=== PATIENT | female | born 2000 | race Two or more races ===

== ENCOUNTER 2020-05-25 16:17 | Emergency (ER) | payer MEDICAID ==
[~2020-05-25] VITALS: Ht 172.7 cm; Wt 56.0 kg
[2020-05-25 16:23] VITALS: BP 128/80
[2020-05-25] MEDS ORDERED: AZITHROMYCIN 500 MG TABLET PO ONE (19:00)
[2020-05-25] MEDS ORDERED: CEFTRIAXONE SODIUM 250 MG/VIAL IM ONE (19:00)
[2020-05-25 19:02] LABS: CLARITY URINE CLEAR (CLEAR); COLOR URINE YELLOW (YELLOW); KETONES URINE NEGATIVE (NEGATIVE); LEUKOCYTE ESTERASE URINE TRACE (NEGATIVE); NITRITE URINE NEGATIVE (NEGATIVE); OCCULT BLOOD URINE NEGATIVE (NEGATIVE); PH URINE 7.5 (4.5-8.0); PROTEIN URINE NEGATIVE (NEGATIVE); SPECIFIC GRAVITY URINE 1.004 (1.005-1.030); UROBILINOGEN URINE 0.2 E.U./dL (0.2-1.0)
[2020-05-25 19:35] LABS: HCG SCREEN NEGATIVE
[2020-05-25] MEDS ORDERED: METRONIDAZOLE 500MG TABLET PO ONE (19:45)
[2020-05-29 10:10] LABS: NEISSERIA GONORRHOEAE NAA Negative (Negative)
== END 2020-05-25 19:41 | disposition home or self-care (01) ==
LOC: ER 16:17
DX: Z20.2 Contact with and (suspected) exposure to infections with a predominantly sexual mode of transmission (principal)
CPT/HCPCS: 81003; 84703; 87210; 87491; 87591; 96372; 99283; J0696